=== PATIENT | female | born 1990 | race Caucasian/White ===

== ENCOUNTER 2018-05-20 18:04 | Emergency (ER) | payer MEDICAID, OTHER ==
[~2018-05-20] VITALS: Ht 157.5 cm; Wt 46.0 kg
[~2018-05-20 18:04] MED LIST: IBUP-1986 PO
[2018-05-20 18:19] VITALS: BP 135/98
== END 2018-05-20 22:23 | disposition left against medical advice (07) ==
LOC: ER 18:04
DX: L08.9 Local infection of the skin and subcutaneous tissue, unspecified (principal); Z53.21 Procedure and treatment not carried out due to patient leaving prior to being seen by health care provider

== ENCOUNTER 2018-06-11 13:05 | Emergency (ER) | payer MEDICAID ==
[~2018-06-11] VITALS: Ht 157.5 cm; Wt 49.1 kg
[2018-06-11 13:16] VITALS: BP 125/89
[2018-06-11] MEDS ORDERED: AMOX-422 PO (13:43)
== END 2018-06-11 13:52 | disposition home or self-care (01) ==
LOC: ER 13:08
DX: S10.91XA Abrasion of unspecified part of neck, initial encounter (principal); S00.31XA Abrasion of nose, initial encounter; J34.0 Abscess, furuncle and carbuncle of nose; F12.90 Cannabis use, unspecified, uncomplicated; F15.90 Other stimulant use, unspecified, uncomplicated; Z88.6 Allergy status to analgesic agent; W54.0XXA Bitten by dog, initial encounter; Y93.89 Activity, other specified; Y92.89 Other specified places as the place of occurrence of the external cause; Y99.8 Other external cause status
CPT/HCPCS: 99283

== ENCOUNTER 2018-11-09 19:24 | Emergency (ER) | payer MEDICAID ==
[~2018-11-09] VITALS: Ht 157.5 cm; Wt 54.8 kg
[2018-11-09 19:33] VITALS: BP 144/92
== END 2018-11-09 20:59 | disposition left against medical advice (07) ==
LOC: ER 19:24
DX: R10.11 Right upper quadrant pain (principal); Z53.21 Procedure and treatment not carried out due to patient leaving prior to being seen by health care provider

== ENCOUNTER 2018-12-06 18:33 | Emergency (ER) | payer MEDICAID ==
[~2018-12-06] VITALS: Ht 160 cm; Wt 55.9 kg
[2018-12-06 18:46] VITALS: BP 132/81
[2018-12-06] MEDS ORDERED: SULF1TAB49 PO (19:10)
== END 2018-12-06 19:22 | disposition home or self-care (01) ==
LOC: ER 18:33
DX: L02.414 Cutaneous abscess of left upper limb (principal); F12.90 Cannabis use, unspecified, uncomplicated; F15.90 Other stimulant use, unspecified, uncomplicated; Z88.5 Allergy status to narcotic agent; Z91.040 Latex allergy status; Z79.899 Other long term (current) drug therapy
CPT/HCPCS: 99283

== ENCOUNTER 2024-09-23 08:26 | Emergency (ER) | payer MEDICAID ==
[~2024-09-23] VITALS: Ht 160 cm; Wt 56.5 kg
[2024-09-23 10:44] LABS: BASOPHILS % (AUTO) 0.2 % (0-1); EOSINOPHILS % (AUTO) 0.4 % (0-6); HEMATOCRIT 38.5 % (35.0-45.0); LYMPHOCYTES # (AUTO) 1.4 X10'3 (1.1-4.8); MEAN CORPUSCULAR HEMOGLOBIN 30.2 PG (27.0-31.0); MEAN CORPUSCULAR HGB CONC 33.8 g/dL (33.0-36.5); MEAN CORPUSCULAR VOLUME 89.5 FL (78-98); MEAN PLATELET VOLUME 7.6 FL (7.4-10.4); MONOCYTES # (AUTO) 0.6 X10'3 (0-0.9); MONOCYTES % (AUTO) 6.9 % (2-12); NEUTROPHILS # (AUTO) 6.7 X10'3 (1.8-7.7); NEUTROPHILS % (AUTO) 76.5 % (42-75); PLATELET COUNT 253 X10'3 (140-440); RED CELL DISTRIBUTION WIDTH 12.5 % (11.5-14.5); WHITE BLOOD COUNT 8.8 X10'3 (4.5-11.0)
[2024-09-23 10:51] LABS: ALBUMIN 3.2 G/DL (3.4-5.0); ANION GAP 4 (8-16); BLOOD UREA NITROGEN 8 MG/DL (7-18); BUN/CREATININE RATIO 12.5 (10.0-20.0); CALCIUM 8.7 MG/DL (8.5-10.1); CHLORIDE 105 MMOL/L (99-107); CREATININE 0.64 MG/DL (0.40-0.90); GLUCOSE 84 MG/DL (70-104); POTASSIUM 3.5 MMOL/L (3.5-5.1); SODIUM 138 MMOL/L (135-145); eCRCL 101 ML/MIN; eGFR > 90 ML/MIN
[2024-09-23] MEDS: normal saline 1000ml 1,000 ML IV ONE (11:08)
[2024-09-23] MEDS: ketorolac trometh 30MG/ML vial 30 MG/ML VIAL IV ONE (11:08)
[2024-09-23 12:38] VITALS: BP 152/95; PULSE 85; RESP 16; TEMP 97.3; O2SAT 100
[2024-09-23] MEDS: ampicillin/sulbac 3gm/NS 100ml 100 ML IV STA (12:38)
[2024-09-23] MEDS ORDERED: iohexol 300mg/ml 100ml inj. ONE (12:47)
[2024-09-23 12:50] LABS: BILIRUBIN,URINE NEGATIVE (Neg); CLARITY,URINE CLEAR (Clear); COLOR,URINE YELLOW (Yellow); GLUCOSE, URINE NEGATIVE (Neg); KETONES,URINE NEGATIVE (Neg); LEUKOCYTE ESTERASE ,URINE NEGATIVE (Neg); NITRITES, URINE NEGATIVE (Neg); OCCULT BLOOD,URINE NEGATIVE (Neg); PROTEIN,URINE NEGATIVE (Neg); UROBILINOGEN,URINE 0.2 E.U/dL (0.2-1.0)
[2024-09-23 12:55] LABS: UA COLLECTION TYPE NON-SPECIFIED
[2024-09-23 13:04] LABS: URINE HCG NEGATIVE (NEG)
[2024-09-23 13:04] LABS: HCG SERUM QL NEGATIVE
[2024-09-23] MEDS ORDERED: CHLO473M2 PO (14:04)
[2024-09-23] MEDS ORDERED: AMOX-117 PO (14:04)
[2024-09-23] MEDS ORDERED: NAPR-56 PO (14:04)
== END 2024-09-23 14:31 | disposition home or self-care (01) ==
LOC: ER 08:27
DX: L03.211 Cellulitis of face (principal); F32.9 Major depressive disorder, single episode, unspecified; F12.90 Cannabis use, unspecified, uncomplicated; K04.7 Periapical abscess without sinus; Z88.5 Allergy status to narcotic agent; Z91.040 Latex allergy status
CPT/HCPCS: 36415; 70487; 80048; 81003; 81025; 84703; 85025; 96361; 96365; 96375; 99285; J0295; J1885; J7030; Q9967

== ENCOUNTER 2025-05-26 20:28 | Emergency (ER) | payer OTHER ==
[~2025-05-26] VITALS: Ht 160 cm; Wt 75.0 kg
[~2025-05-26 20:28] MED LIST changes: +AMOX-117 PO; +CHLO473M2 PO
[2025-05-26 20:53] VITALS: BP 162/96; PULSE 120; RESP 18; TEMP 98.2; O2SAT 99
== END 2025-05-27 00:21 | disposition left against medical advice (07) ==
LOC: ER 20:30
DX: M25.572 Pain in left ankle and joints of left foot (principal); Z53.21 Procedure and treatment not carried out due to patient leaving prior to being seen by health care provider